=== PATIENT | male | born 1990 | race Caucasian/White ===

== ENCOUNTER 2019-11-18 05:08 | Emergency (ER) | payer BC ==
[~2019-11-18] VITALS: Ht 167.6 cm; Wt 104.5 kg
[2019-11-18] MEDS ORDERED: LISINOP/HCTZ1 TA1 PO (06:46)
[2019-11-18 06:55] VITALS: BP 137/60
== END 2019-11-18 06:55 | disposition home or self-care (01) | DRG 305 ==
LOC: ED 05:08
DX: I10 Essential (primary) hypertension (principal)